=== PATIENT | female | born 1975 | race Caucasian/White ===

== ENCOUNTER 2017-08-05 09:51 | Emergency (ER) | payer BC, OTHER ==
[~2017-08-05] VITALS: Ht 152.4 cm; Wt 87.0 kg
[~2017-08-05 09:51] MED LIST: AMLO5TAB2 PO; LISI1TAB3 PO; METF500T4 PO
[2017-08-05 10:06] VITALS: BP 147/84
[2017-08-05] MEDS ORDERED: KETOROLAC 30 MG/1 ML ONE (10:42)
[2017-08-05] MEDS ORDERED: DIAZEPAM 5 MG TABLET ONE (10:42)
[2017-08-05] MEDS ORDERED: DIAZEPAM 5 MG TABLET PO ONE (11:00)
[2017-08-05] MEDS ORDERED: KETOROLAC 30 MG/1 ML IM ONE (11:00)
== END 2017-08-05 11:59 | disposition home or self-care (01) ==
LOC: ED 11:29
DX: M54.16 Radiculopathy, lumbar region (principal); M54.32 Sciatica, left side; I10 Essential (primary) hypertension; E11.40 Type 2 diabetes mellitus with diabetic neuropathy, unspecified; Z88.0 Allergy status to penicillin
CPT/HCPCS: 72110; 96372; 99284; J1885

== ENCOUNTER 2018-10-22 20:41 | Emergency (ER) | payer BC, OTHER ==
[~2018-10-22] VITALS: Ht 152.4 cm; Wt 83.5 kg
[~2018-10-22 20:41] MED LIST changes: +AMLO-150 PO; -AMLO5TAB2 PO; +METF500T17 PO; -METF500T4 PO
--- NOTE | 2018-10-22 21:19 | NUR ---
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 PT REPORTS FEELING LIGHTHEADED TODAY AT 1430 DURING MEETING AT WORK. PT DENIES MYERS, VISION CHANGES, N/V/D, OR ANY TRAUMA. NEGATIVE PRONATOR DRIFT.
[2018-10-22 21:25] LABS: BASOPHILS # (AUTO) 0.11 x10^3/uL (0-0.1); BASOPHILS % (AUTO) 1 % (0-1); EOSINOPHILS # (AUTO) 0.08 x10^3/uL (0-0.4); EOSINOPHILS % (AUTO) 1 % (1-7); LYMPHOCYTES # (AUTO) 2.83 x10^3/uL (1-3.4); LYMPHOCYTES % (AUTO) 28 % (22-44); MD NO; MEAN CORPUSCULAR HEMOGLOBIN 30.6 pg (27.0-34.8); MEAN CORPUSCULAR HGB CONC 33.3 g/dL (32.4-35.8); MEAN CORPUSCULAR VOLUME 91.7 fL (80-100); MONOCYTES # (AUTO) 0.74 x10^3/uL (0.2-0.8); MONOCYTES % (AUTO) 7 % (2-9); NEUTROPHILS # (AUTO) 6.24 x10^3/uL (1.8-6.8); NEUTROPHILS % (AUTO) 62 % (42-75); PLATELET COUNT 463 x10^3/uL (130-400); RED BLOOD COUNT 4.67 x10^6/uL (3.82-5.3); RED CELL DISTRIBUTION WIDTH 15.1 % (9.6-15.2)
--- NOTE | 2018-10-22 21:28 | NUR ---
PT TO CT. PT VOIDED PRIOR TO CT BUT FORGOT TO VOID IN THE URINE CUP.
[2018-10-22 21:37] LABS: ALBUMIN 4.1 g/dL (3.4-5.0); ANION GAP 7 mmol/L (5-15); CALCIUM 9.5 mg/dL (8.5-10.1); CHLORIDE 105 mmol/L (98-107); CREATININE 0.85 mg/dL (0.55-1.02)
--- NOTE | 2018-10-22 22:02 | NUR ---
UA WALKED TO THE LAB DUE TO SMALL AMOUNT COLLECTED. PT REPORTED AFTER COLLECTION SHE WAS ON HER MENSES. OK PER DR. CASTREJON TO GO [facility] AND TEST. REPORT TO LEXA Garcia RN.
[2018-10-22 22:03] VITALS: BP 117/69
[2018-10-22 22:15] LABS: CULTURE INDICATED? YES; MICROSCOPIC INDICATED
[2018-10-22 22:27] LABS: HCG UR SG 1.032 (1.003-1.030)
[2018-10-22 22:34] LABS: AMPHETAMINE SCREEN, URINE Negative (Negative); BARBITURATE SCREEN, URINE Negative (Negative); BENZODIAZEPINE SCREEN, URINE Negative (Negative); CANNABINOID SCREEN, URINE Negative (Negative); COCAINE SCREEN, URINE Negative (Negative); METHADONE SCREEN, URINE Negative (Negative); OPIATE SCREEN, URINE Negative (Negative)
== END 2018-10-22 23:25 | disposition home or self-care (01) ==
LOC: ED 21:39
DX: R53.1 Weakness (principal); R20.2 Paresthesia of skin; I10 Essential (primary) hypertension; E11.9 Type 2 diabetes mellitus without complications
CPT/HCPCS: 36415; 70450; 80048; 80307; 81001; 81025; 82040; 82962; 85025; 87086; 93005; 99284

== ENCOUNTER 2019-09-30 06:40 | Emergency (ER) | payer BC, OTHER ==
[~2019-09-30] VITALS: Ht 152.4 cm; Wt 84.1 kg
[~2019-09-30 06:40] MED LIST changes: +LISI1TAB23 PO; -LISI1TAB3 PO
[2019-09-30] MEDS ORDERED: SODIUM CHLORIDE 0.9% 1,000ML IVBOLUS ONE (07:00)
[2019-09-30] MEDS ORDERED: METOCLOPRAMIDE 5 MG/ML, 2ML IVPush ONE (07:00)
[2019-09-30] MEDS ORDERED: DIPHENHYDRAMINE 50 MG/ML, 1ML IVPush ONE (07:00)
--- NOTE | 2019-09-30 07:00 | NUR ---
ASSUMED CARE OF PT AT THIS TIME FROM TRIAGE. AMBULATORY TO ROOM WITH SPOUSE WITH STEADY GAIT. SURJIT SINGLETON AT BEDSIDE FOR EVALUATION. 44 Y/O F PRESENTS STATING "MYERS RIGHT SIDE OF HEAD AND FEELS LIKE MY HEAD IS BEING SLICED IN HALF SINCE THURSDAY. NOTHING IS HELPING IT, HAVE BEEN TAKING TYLENOL. THE LIGHT BOTHERS MY EYES AND I'M NAUSEOUS SOMETIMES, I JUST DON'T FEEL RIGHT." DENIES VISUAL CHANGES OR DIFFICULTY, SOB, CP, V/D, COUGH, FEVER, CHILLS. PT WITH HTN HX, "MY PRIMARY CARE DOCTOR TOOK MY OFF MY MEDICATION ABOUT A MONTH AGO AND I'M NOT SURE WHY, I FEEL LIKE I STILL NEED IT." CONT PULSE OX, BP MONITORS APPLIED. VSS. CALL LIGHT IN REACH. FALL PRECUATIONS IN PLACE. SIDE RAILS UPX2. A&OX4. SPEECH CLEAR, NEURO INTACT. ASSESSMENT COMPLETED.
[2019-09-30] MEDS ORDERED: METOCLOPRAMIDE 5 MG/ML, 2ML ONE (07:11)
[2019-09-30] MEDS ORDERED: DIPHENHYDRAMINE 50 MG/ML, 1ML ONE (07:11)
--- NOTE | 2019-09-30 07:15 | NUR ---
IV PLACED, LABS DRAWN. PT MEDICATED NOTED IN [facility] FOR 10/10 HEADACHE PAIN. PROVIDED PILLOW AND ICE PACKS FOR COMFORT. RESTING IN POSITION OF COMFORT. DENIES NEED TO USE RESTROOM. AWAITING CT. CALL LIGHT IN REACH. FALL PRECUATIONS IN PLACE. SPOUSE AT BEDSIDE
--- NOTE | 2019-09-30 07:25 | NUR ---
PT IN CT
[2019-09-30 07:30] LABS: BASOPHILS # (AUTO) 0.06 x10^3/uL (0-0.1); BASOPHILS % (AUTO) 1 % (0-1); EOSINOPHILS # (AUTO) 0.15 x10^3/uL (0-0.4); EOSINOPHILS % (AUTO) 2 % (1-7); LYMPHOCYTES # (AUTO) 2.98 x10^3/uL (1-3.4); LYMPHOCYTES % (AUTO) 30 % (22-44); MD NO; MEAN CORPUSCULAR HEMOGLOBIN 30.2 pg (27.0-34.8); MEAN CORPUSCULAR HGB CONC 33.4 g/dL (32.4-35.8); MEAN CORPUSCULAR VOLUME 90.4 fL (80-100); MEAN PLATELET VOLUME 7.3 fL (7.4-10.4); MONOCYTES # (AUTO) 0.55 x10^3/uL (0.2-0.8); MONOCYTES % (AUTO) 6 % (2-9); NEUTROPHILS % (AUTO) 62 % (42-75); PLATELET COUNT 450 x10^3/uL (130-400); RED BLOOD COUNT 4.32 x10^6/uL (3.82-5.3); RED CELL DISTRIBUTION WIDTH 15.1 % (9.6-15.2)
[2019-09-30 07:35] LABS: ALBUMIN 3.2 g/dL (3.4-5.0); ANION GAP 6 mmol/L (5-15); CALCIUM 8.6 mg/dL (8.5-10.1); CHLORIDE 108 mmol/L (98-107)
[2019-09-30] MEDS ORDERED: PARO10TA3 PO (07:36)
[2019-09-30 07:39] LABS: CREATININE 0.66 mg/dL (0.55-1.02)
--- NOTE | 2019-09-30 07:39 | NUR ---
PT BCK FROM CT, REPORTS MYERS PAIN "SAME" NO IMPROVEMENT PER PT. PT REPOSITIONED FOR COMFORT WITH PILLOWS AND ICE PACKS. NEURO REMAINS INTACT. VSS. DISCUSSED MYERS PAIN WITH SURJIT SINGLETON AND DR. JOHNSON, AWARE, NO NEW ORDERS RECEIVED AT THIS TIME. CONTINUE AWAITING LAB AND CT RESULTS. CALL LIGHT IN REACH. FALL PRECUATIONS IN PLACE.
[2019-09-30] MEDS ORDERED: KETOROLAC 30 MG/1 ML ONE (07:47)
--- NOTE | 2019-09-30 07:51 | NUR ---
CT AND LABS RESULTED, NEW ORDERS RECEIVED FOR PAIN. PT MEDICATED NOTED IN [facility] PER ERP FOR 1010 MYERS PAIN. VSS. CALL LIGHT IN REACH. FALL PRECAUTIONS IN PLACE. SPOUSE AT BEDSIDE
[2019-09-30] MEDS ORDERED: KETOROLAC 30 MG/1 ML IVPush ONE (08:00)
--- NOTE | 2019-09-30 08:15 | NUR ---
PT RESTING IN POSITION OF COMFORT WITH EYES CLOSED, DOZING INTERMITTENTLY, AROUSES TO VOICE, REPORTS PAIN IMPROVING, UNABLE TO RATE PAIN "BETTER." SPOUSE REPORTS "SHE SEEMS TO BE BETTER, GETTING THERE." PT UP FOR RECHECK. VSS. CALL LIGHT IN REACH. LIGHTS REMAIN OFF FOR PT COMFORT WITH ICE PACKS IN PLACE. FALL PRECAUTIONS IN PLACE
--- NOTE | 2019-09-30 08:28 | NUR ---
PT UP FOR RECHECK
--- NOTE | 2019-09-30 08:37 | NUR ---
SURJIT SINGLETON AT BEDSIDE FOR RECHECK, DISCUSSING TEST RESULTS AND PAIN WITH PT, PT REQUESTING ADDITIONAL PAIN MEDICATION, AWAITING ORDERS.
[2019-09-30] MEDS ORDERED: MORPHINE SULFATE 4 MG/ML, 1ML ONE (08:40)
--- NOTE | 2019-09-30 08:42 | NUR ---
PT MEDICATED NOTED IN [facility] PER ERP FOR 8/10 MYERS PAIN. VSS. DENIES NEED TO USE RESTROOM AND NAUSEA. CALL LIGHT IN REACH. FALL PRECUATIONS IN PLACE. SPOUSE AT BEDSIDE
[2019-09-30] MEDS ORDERED: MORPHINE SULFATE 4 MG/ML, 1ML IVPush PRN (09:00)
[2019-09-30 09:11] VITALS: BP 137/79
--- NOTE | 2019-09-30 09:12 | NUR ---
PT REPORTS MYERS IMPROVED TO 4/10 "FEEL SO MUCH BETTER, THANK YOU." DISCUSSED WITH SURJIT SINGLETON. PA AT BEDSIDE FOR RECHECK. PT CLEARED FOR DISCHARGE BY ERP. CALL LIGHT IN REACH. VSS.
== END 2019-09-30 09:29 | disposition home or self-care (01) ==
LOC: ED 07:51
DX: G44.219 Episodic tension-type headache, not intractable (principal); I10 Essential (primary) hypertension; E11.40 Type 2 diabetes mellitus with diabetic neuropathy, unspecified; R11.2 Nausea with vomiting, unspecified
CPT/HCPCS: 36415; 70450; 80048; 82040; 84703; 85025; 96361; 96374; 96375; 99284; J1200; J1885; J2270; J2765; J7030